=== PATIENT | female | born 1990 | race Caucasian/White ===

== ENCOUNTER 2019-04-25 17:24 | Emergency (ER) | payer OTHER ==
[2019-04-25 17:34] VITALS: BP 126/75; TEMP 98.2; BMI 24.2
--- NOTE | 2019-04-25 17:37 | PDOC ---
Rapid Medical Evaluation Chief Complaint: Pain Time Seen by Provider: 04/25/19 17:33 Medical Evaluation: Allergies Allergy/AdvReac Type Severity Reaction Status Date / Time No Known Drug Allergies Allergy Verified 04/25/19 17:30 04/25/19 17:33 This patient had brief medical evaluation in triage cc: abdominal pain x 2-3 days HPI: patient reports left lower abdominal pain x 2-3 days with no constipation, nausea or vomiting PE: appear unlabored breathing abdomen non-tender, +bowel sounds Orders: urine This patient will proceed to main ed for further evaluation Discharge Disposition - Diagnosis Abdominal pain - Referrals - Patient Instructions - Post Discharge Activity
--- NOTE | 2019-04-25 19:59 | PDOC ---
History of Present Illness - General Chief Complaint: Pain Stated Complaint: ABD PAIN Time Seen by Provider: 04/25/19 17:33 History Source: Patient - History of Present Illness Initial Comments: 04/25/19 19:54 29 year old female c/o LUQ pain and nausea x 3 days. reports slight chest pain and palpitations and dizziness. denies pleuritic pain. patient reports that she has been off thyroid meds for 3 months. PMHX; hypertension hyperthyroidism currently not on meds 04/25/19 19:56 04/25/19 20:01 04/25/19 20:03 Timing/Duration: reports: getting worse Abdominal Pain Onset Location: reports: RUQ, LUQ Pain Radiation: reports: RUQ Past History - Past Medical History Allergies/Adverse Reactions: Allergies Allergy/AdvReac Type Severity Reaction Status Date / Time No Known Drug Allergies Allergy Verified 04/25/19 17:30 Home Medications: Ambulatory Orders NK [No Known Home Medication] 04/25/19 Anemia: No Asthma: No Cancer: No Cardiac Disorders: No CVA: No COPD: No CHF: No Dementia: No Diabetes: No GI Disorders: No Disorders: No HTN: Yes Hypercholesterolemia: No Liver Disease: No Seizures: No Thyroid Disease: No - Immunization History Immunization Up to Date: No - Psycho Social/Smoking Cessation Hx Smoking History: Never smoked Information on smoking cessation initiated: No Hx Alcohol Use: No Drug/Substance Use Hx: No Substance Use Type: None Hx Substance Use Treatment: No Review of Systems - Review of Systems Able to Perform ROS?: Yes Is the patient limited Spanish proficient: No ABD/GI: Yes: Nausea, Abdominal cramping : No: Symptoms Reported, See HPI, Burning, Dysuria, Discharge, Frequency, Flank Pain, Hematuria, Incontinence, Pain, Urgency, Testicular Mass, Testicular Swelling, Lesions, Testicular Pain, Other Musculoskeletal: No: Symptoms Reported, See HPI, Back Pain, Gout, Joint Pain, Joint Swelling, Muscle Pain, Muscle Weakness, Neck Pain, Joint Stiffness, Other *Physical Exam - Vital Signs Last Vital Signs Temp Pulse Resp BP Pulse Ox 98.2 F 116 H 18 126/75 100 04/25/19 17:30 04/25/19 17:30 04/25/19 17:30 04/25/19 17:30 04/25/19 17:30 - Physical Exam General Appearance: Yes: Appropriately Dressed Neck: positive: Thyromegaly Respiratory/Chest: positive: Lungs Clear, Normal Breath Sounds Cardiovascular: positive: Tachycardia Gastrointestinal/Abdominal: positive: Normal Bowel Sounds, Tender (LUQ/ epigastric are) Extremity: positive: Normal Capillary Refill Integumentary: positive: Normal Color, Dry, Warm Neurologic: positive: Fully Oriented, Alert ED Treatment Course - LABORATORY CBC & Chemistry Diagram: 04/25/19 20:15 04/25/19 20:15 - ADDITIONAL ORDERS Additional order review: Laboratory Results 04/25/19 17:45 Urine HCG, Qual Negative ED Progress Note - Progress Note Progress Note: A: Hyperthyroidism P: CBC CMP cardiac TSH EKG chest xray Medical Decision Making - Medical Decision Making 04/25/19 22:[address] hall recommends outpatient PCP follow up tomorrow Discharge - Discharge Information Problems reviewed: Yes Clinical Impression/Diagnosis: Palpitations, Hyperthyroidism Chest pain Qualifiers: Chest pain type: unspecified Qualified Code(s): R07.9 - Chest pain, unspecified Condition: Fair Disposition: HOME - Follow up/Referral Referrals: Nate Harding MD [Primary Care Provider] - (walk in tomorrow) - Patient Discharge Instructions Patient Printed Discharge Instructions: Hyperthyroidism Additional Instructions: please go to Dr. moore office tomorrow. you need treatment for your hyperthyroid - Post Discharge Activity Work/Back to School Note: Back to Work
[2019-04-25] MEDS ORDERED: ONDANSETRON *ODT* 4 MG TABLET SL ONE (20:05)
[2019-04-25] MEDS ORDERED: ONDANSETRON *ODT* 4 MG TABLET ONE (20:19)
[2019-04-25 20:33] LABS: BASO % 1.5 % (0-2.0); EOS % 0.6 % (0-4.5); HEMATOCRIT 38.5 % (32.4-45.2); LYMPH % 63.2 % (8-40); MCH 27.1 pg (25.7-33.7); MCHC 33.8 g/dl (32.0-36.0); MEAN CELL VOLUME 80.3 fl (80-96); MEAN PLT VOLUME 7.5 fl (7.5-11.1); MONO % 9.8 % (3.8-10.2); NEUT % 24.9 % (42.8-82.8); PLATELET COUNT 270 K/MM3 (134-434); RBC 4.79 M/mm3 (3.60-5.2); RDW 14.3 % (11.6-15.6); WHITE BLOOD COUNT 4.5 K/mm3 (4.0-10.0)
[2019-04-25 20:35] LABS: URINE APPEARANCE CLEAR; URINE BILIRUBIN NEGATIVE (NEGATIVE); URINE COLOR YELLOW; URINE GLUCOSE (UA) NEGATIVE (NEGATIVE); URINE KETONE NEGATIVE (NEGATIVE); URINE LEUK ESTERASE NEGATIVE (NEGATIVE); URINE NITRITE NEGATIVE (NEGATIVE); URINE PROTEIN NEGATIVE (NEGATIVE); URINE UROBILINOGEN 0.2 mg/dL (0.2-1.0)
[2019-04-25 21:31] LABS: ALBUMIN 3.9 g/dl (3.4-5.0); ALK PHOS 141 U/L (45-117); ANION GAP 9 MMOL/L (8-16); BILIRUBIN,TOTAL 0.4 mg/dL (0.2-1); CALCIUM 8.9 mg/dL (8.5-10.1); CHLORIDE 106 mmol/L (98-107); CO2 25 mmol/L (21-32); CREATININE 0.4 mg/dL (0.55-1.3); GLUCOSE,RANDOM 92 mg/dL (74-106); POTASSIUM 3.3 mmol/L (3.5-5.1); SGOT/AST 13 U/L (15-37); SGPT/ALT 28 U/L (13-61); SODIUM 140 mmol/L (136-145); TOT PROT 7.2 g/dl (6.4-8.2)
[2019-04-25 21:48] LABS: PLATELET ESTIMATE ADEQUATE
[2019-04-25 22:39] VITALS: PULSE 109
--- NOTE | 2019-04-26 10:33 | EKG ---
Test Reason : Blood Pressure : / mmHG Vent. Rate : 105 BPM Atrial Rate : 105 BPM P-R Int : 132 ms QRS Dur : 088 ms QT Int : 398 ms P-R-T Axes : 030 080 066 degrees QTc Int : 526 ms SINUS TACHYCARDIA PROLONGED QT ABNORMAL ECG NO PREVIOUS ECGS AVAILABLE Confirmed by Axel Baugh MD ([id number]) on 04/26/2019 10:33:20 AM Referred By: Confirmed By:Axel Baugh MD
== END 2019-04-25 22:39 | disposition home or self-care (01) ==
LOC: JER 17:24
DX: E05.90 Thyrotoxicosis, unspecified without thyrotoxic crisis or storm (principal); R00.2 Palpitations; R07.9 Chest pain, unspecified; I10 Essential (primary) hypertension
CPT/HCPCS: 36415; 71046-TC-FY; 80053; 81003; 82550; 84439; 84443; 84481; 84484; 84703; 85025; 93005; 93010; 99284-25; Q0162

== ENCOUNTER 2019-04-28 16:53 | Emergency (ER) | payer OTHER ==
[2019-04-28 17:12] VITALS: BMI 22.8
--- NOTE | 2019-04-28 17:12 | PDOC ---
Rapid Medical Evaluation Chief Complaint: Pain, Acute Time Seen by Provider: 04/28/19 17:09 Medical Evaluation: Allergies Allergy/AdvReac Type Severity Reaction Status Date / Time No Known Drug Allergies Allergy Verified 04/25/19 17:30 04/28/19 17:09 I have performed a brief in-person evaluation of this patient. The patient presents with a chief complaint of: urinary pain and pain to LLQ radiating to L flank x 1 week, fever and diarrhea today, LMP began yesterday Pertinent physical exam findings: L CVA tenderness I have ordered the following: ua, ucx, upreg The patient will proceed to the ED for further evaluation. 04/28/19 17:12 Discharge Disposition - Diagnosis Dysuria - Discharge Dispostion Condition at time of disposition: Stable - Referrals - Patient Instructions - Post Discharge Activity
[2019-04-28] MEDS ORDERED: SODIUM CHLORIDE 1,000 ML IV STA (17:44)
[2019-04-28] MEDS ORDERED: ACETAMINOPHEN 1000 MG/100 ML VIAL (NON FORMULARY) IVPB ONE (17:44)
--- NOTE | 2019-04-28 17:45 | PDOC ---
History of Present Illness - General Chief Complaint: Pain, Acute Stated Complaint: LT ABD PAIN Time Seen by Provider: 04/28/19 17:09 History Source: Patient Exam Limitations: No Limitations Past History - Travel Traveled outside of the country in the last 30 days: No Close contact w/someone who was outside of country & ill: No - Past Medical History Allergies/Adverse Reactions: Allergies Allergy/AdvReac Type Severity Reaction Status Date / Time No Known Drug Allergies Allergy Verified 04/28/19 18:22 Home Medications: Ambulatory Orders Acetaminophen [Tylenol -] 650 mg PO Q6H #45 tablet 04/28/19 Famotidine [Pepcid -] 20 mg PO BID #14 tablet 04/28/19 Methimazole 10 mg PO DAILY 04/28/19 Anemia: No Asthma: No Cancer: No Cardiac Disorders: No CVA: No COPD: No CHF: No Dementia: No Diabetes: No GI Disorders: No Disorders: No HTN: Yes Hypercholesterolemia: No Liver Disease: No Seizures: No Thyroid Disease: No - Immunization History Immunization Up to Date: No - Psycho Social/Smoking Cessation Hx Smoking History: Never smoked Have you smoked in the past 12 months: No Information on smoking cessation initiated: No Hx Alcohol Use: No Drug/Substance Use Hx: No Substance Use Type: None Hx Substance Use Treatment: No Review of Systems - Review of Systems Able to Perform ROS?: Yes Comments:: 04/28/19 20:10 CONSTITUTIONAL: Absent: fever, chills, diaphoresis, generalized weakness, malaise, loss of appetite HEENT: Absent: rhinorrhea, nasal congestion, throat pain, throat swelling, difficulty swallowing, mouth swelling, ear pain, eye pain, visual Changes CARDIOVASCULAR: Absent: chest pain, loss of consciousness, palpitations, irregular heart rate, peripheral edema RESPIRATORY: Absent: cough, shortness of breath, dyspnea with exertion, orthopnea, wheezing, stridor, hemoptysis GASTROINTESTINAL: Present: Left-sided abdominal pain Absent: abdominal distension, nausea, vomiting, diarrhea, constipation, melena, hematochezia GENITOURINARY: Present: Left flank pain Absent: dysuria, frequency, urgency, hesitancy, hematuria,genital pain MUSCULOSKELETAL: Absent: myalgia, arthralgia, joint swelling SKIN: Absent: rash, itching, pallor HEMATOLOGIC/IMMUNOLOGIC: Absent: easy bleeding, easy bruising, lymphadenopathy, frequent infections ENDOCRINE: Absent: unexplained weight gain, unexplained weight loss, heat intolerance, cold intolerance NEUROLOGIC: Absent: headache, focal weakness or paresthesias, dizziness, unsteady gait, seizure, mental status changes, bladder or bowel incontinence PSYCHIATRIC: Absent: anxiety, depression, suicidal or homicidal ideation, hallucinations. Is the patient limited Pakistani proficient: No *Physical Exam - Vital Signs Last Vital Signs Temp Pulse Resp BP Pulse Ox 98.8 F 103 H 18 144/79 98 04/28/19 17:09 04/28/19 17:09 04/28/19 17:09 04/28/19 17:09 04/28/19 17:09 - Physical Exam 04/28/19 20:11 GENERAL: Well developed, well nourished. Awake and alert. No acute distress. HEENT: Normocephalic, atraumatic. PERRLA, EOMI. No conjunctival pallor. Sclera are non- icteric. Moist mucous membranes. Oropharynx is clear. NECK: Supple. Full ROM. No JVD. Carotid pulses 2+ and symmetric, without bruits. No thyromegaly. No lymphadenopathy. CARDIOVASCULAR: Regular rate and rhythm. No murmurs, rubs, or gallops. Distal pulses are 2+ and symmetric. PULMONARY: No evidence of respiratory distress. Lungs clear to auscultation bilaterally. No wheezing, rales or rhonchi. ABDOMINAL: TTP of the LUQ. Soft. Non-distended. No rebound or guarding. No organomegaly. Normoactive bowel sounds. MUSCULOSKELETAL Normal range of motion at all joints. No bony deformities or tenderness. (+) L CVA tenderness. EXTREMITIES: No cyanosis. No clubbing. No edema. No calf tenderness. SKIN: Warm and dry. Normal capillary refill. No rashes. No jaundice. NEUROLOGICAL: Alert, awake, appropriate. Cranial nerves 2-12 intact. No deficits to light touch and temperature in face, upper extremities and lower extremities. No motor deficits in the in face, upper extremities and lower extremities. Normoreflexic in the upper and lower extremities. Normal speech. Toes are down-going bilaterally. Gait is normal without ataxia. PSYCHIATRIC: Cooperative. Good eye contact. Appropriate mood and affect. ED Treatment Course - LABORATORY CBC & Chemistry Diagram: 04/28/19 18:00 04/28/19 18:00 - RADIOLOGY Radiology Studies Ordered: Category Date Time Status SPIRAL- RENAL-STONE CT [CT] Stat CT Scan 04/28/19 17:44 Ordered Medical Decision Making - Medical Decision Making 04/28/19 20:18 The patient is a 29-year-old female with past medical history of bacteria in her stomach 3 months ago, presents to the ER today for left flank pain and abdominal pain for 1 week. She states that the pain is sharp and nothing makes it better or worse. She does admit to some associated nausea and vomiting which started today. She also admits to one bout of diarrhea. She states the pain radiates to her lower abdomen. Denies fevers, chills, chest pain, shortness of breath, and urinary symptoms. She states she did not finish taking her ant ibiotics as previously prescribed by her GI doctor for her bacterial overgrowth. A/P: Abdominal pain On exam patient has tenderness palpation of the left upper quadrant with left flank pain. Fluids, Zofran and Tylenol given for symptoms Lab work and CT show no acute pathology at this time. Repeat abdominal exam now without pain. Likely a viral illness versus "bacterial overgrowth. Defer antibiotics at this time as unsure of the bacteria status. Do not want to do C. difficile. Instructed patient to follow-up with her outside sales inspector this week for further evaluation of her symptoms. I discussed the physical exam findings, ancillary test results and final diagnoses with the patient. I answered all of the patient's questions. The patient was satisfied with the care received and felt comfortable with the discharge plan and treatment plan. The Patient agrees to follow up with the primary care physician/specialist within 24-72 hours. Return precautions were given. Discharge - Discharge Information Problems reviewed: Yes Clinical Impression/Diagnosis: Abdominal pain Qualifiers: Abdominal location: left upper quadrant Qualified Code(s): R10.12 - Left upper quadrant pain Condition: Stable - Admission No - Additional Discharge Information Prescriptions: Famotidine [Pepcid -] 20 mg PO BID #14 tablet Acetaminophen [Tylenol -] 650 mg PO Q6H #45 tablet - Follow up/Referral Referrals: Brendon Harding [Primary Care Provider] - - Patient Discharge Instructions Patient Printed Discharge Instructions: DI for Abdominal Pain-Adult Additional Instructions: You were evaluated for your abdominal pain today. Your CAT scan and lab work did not reveal an emergency at this time. Please eat a bland diet including plain rice, applesauce, toast. You may take the Pepcid twice a day to help with the acid. You may take Tylenol 650 mg every 6 hours as needed for pain. Please follow-up with your outside sales inspector this week. Return to the ER for worsening pain, nausea, vomiting, diarrhea, or if you have any changes in your symptoms.. - Post Discharge Activity
[2019-04-28] MEDS ORDERED: ACETAMINOPHEN INJECTION 100 ML IVPB ONE (18:03)
[2019-04-28 18:11] LABS: BASO % 0.5 % (0-2.0); EOS % 1.7 % (0-4.5); HEMATOCRIT 38.3 % (32.4-45.2); HEMOGLOBIN 12.9 GM/dL (10.7-15.3); LYMPH % 70.2 % (8-40); MCH 27.3 pg (25.7-33.7); MCHC 33.7 g/dl (32.0-36.0); MEAN CELL VOLUME 80.9 fl (80-96); MEAN PLT VOLUME 7.3 fl (7.5-11.1); NEUT % 20.6 % (42.8-82.8); PLATELET COUNT 261 K/MM3 (134-434); RBC 4.74 M/mm3 (3.60-5.2); WHITE BLOOD COUNT 3.8 K/mm3 (4.0-10.0)
[2019-04-28 18:27] LABS: HCG,QUALITATIVE URINE Negative
[2019-04-28 18:29] LABS: EPI CELLS 1.2 /HPF (0-5/HPF); HYALINE CASTS 0 /lpf (0-8); PH,URINE 6.5 (5.0-8.0); URINE APPEARANCE CLEAR; URINE BACTERIA 10.8 /hpf (NEGATIVE); URINE BILIRUBIN NEGATIVE (NEGATIVE); URINE COLOR YELLOW; URINE GLUCOSE (UA) NEGATIVE (NEGATIVE); URINE KETONE NEGATIVE (NEGATIVE); URINE LEUK ESTERASE NEGATIVE (NEGATIVE); URINE NITRITE NEGATIVE (NEGATIVE); URINE PROTEIN NEGATIVE (NEGATIVE); URINE RBC 19 /hpf (0-4); URINE UROBILINOGEN 0.2 mg/dL (0.2-1.0); URINE WBC 1 /hpf (0-5)
[2019-04-28 18:37] LABS: ALBUMIN 3.8 g/dl (3.4-5.0); BILIRUBIN,TOTAL 0.3 mg/dL (0.2-1); BLOOD UREA NITROGEN 13.1 mg/dL (7-18); CALCIUM 8.9 mg/dL (8.5-10.1); CREATININE 0.4 mg/dL (0.55-1.3); POTASSIUM 3.5 mmol/L (3.5-5.1); TOT PROT 7.3 g/dl (6.4-8.2)
[2019-04-28 20:31] VITALS: BP 135/75; PULSE 96; TEMP 98.2
== END 2019-04-28 20:31 | disposition home or self-care (01) ==
LOC: JER 16:53
PROC: 3E033NZ Introduction of Analgesics, Hypnotics, Sedatives into Peripheral Vein, Percutaneous Approach (ICD-10-PCS; principal; 2019-04-28)
DX: R10.12 Left upper quadrant pain (principal); I10 Essential (primary) hypertension
CPT/HCPCS: 36415; 74176-TC; 80053; 81003; 84703; 85025; 87086; 96374; 99285-25; J0131; J7030

== ENCOUNTER 2020-09-11 07:53 | Emergency (ER) | payer OTHER ==
[2020-09-11 08:24] VITALS: BP 120/78; PULSE 79; TEMP 98.6; BMI 27.6
== END 2020-09-11 09:15 | disposition home or self-care (01) ==
LOC: JER 07:53
DX: J02.9 Acute pharyngitis, unspecified (principal); Z11.52 Encounter for screening for COVID-19
CPT/HCPCS: 87880; 99283-25; C9803; U0003; U0005

== ENCOUNTER 2021-06-30 10:42 | Emergency (ER) | payer OTHER ==
[2021-06-30 10:51] VITALS: BP 132/74; PULSE 103; TEMP 98.5; BMI 23.9
[2021-06-30 13:09] LABS: URINE APPEARANCE CLEAR; URINE BILIRUBIN NEGATIVE (NEGATIVE); URINE COLOR YELLOW; URINE GLUCOSE (UA) NEGATIVE (NEGATIVE); URINE KETONE NEGATIVE (NEGATIVE); URINE LEUK ESTERASE NEGATIVE (NEGATIVE); URINE NITRITE NEGATIVE (NEGATIVE); URINE PROTEIN NEGATIVE (NEGATIVE); URINE UROBILINOGEN 0.2 mg/dL (0.2-1.0)
[2021-06-30 13:20] LABS: HCG,QUALITATIVE URINE Negative
[2021-06-30] MEDS ORDERED: predniSONE 20 MG TABLET (UD) ONE (13:22)
[2021-06-30] MEDS ORDERED: predniSONE 20 MG TABLET (UD) PO ONE (14:11)
[2021-07-01] MEDS ORDERED: predniSONE 20 MG TABLET (UD) PO ONE (10:00)
== END 2021-06-30 14:45 | disposition home or self-care (01) ==
LOC: JER 10:42 → JERFT 10:42
PROC: 3E023GC Introduction of Other Therapeutic Substance into Muscle, Percutaneous Approach (ICD-10-PCS; principal; 2021-06-30)
DX: R21 Rash and other nonspecific skin eruption (principal); Z11.3 Encounter for screening for infections with a predominantly sexual mode of transmission
CPT/HCPCS: 36415; 81003; 84703; 87086; 87491; 87591; 99284-25

== ENCOUNTER 2021-10-14 10:55 | Emergency (ER) | payer OTHER ==
[2021-10-14 11:01] VITALS: BP 123/77; PULSE 90; RESP 17; TEMP 97.9; BMI 25.7
[2021-10-14] MEDS ORDERED: FLUCONAZOLE 150 MG TABLET PO ONE ×2 (11:46→12:09)
[2021-10-14 12:09] LABS: EPI CELLS 27 /uL (0-25.1); HCG,QUALITATIVE URINE Negative; HYALINE CASTS 1 /uL (0-3.1); PH,URINE 5.5 (5.0-8.0); URINE APPEARANCE CLEAR; URINE BACTERIA 344 /uL (0-1359); URINE BILIRUBIN NEGATIVE (NEGATIVE); URINE COLOR DK YELLOW; URINE GLUCOSE (UA) NEGATIVE (NEGATIVE); URINE KETONE TRACE (NEGATIVE); URINE LEUK ESTERASE 1+ (NEGATIVE); URINE NITRITE NEGATIVE (NEGATIVE); URINE PROTEIN NEGATIVE (NEGATIVE); URINE RBC 7 /uL (0-23.9); URINE WBC 4 /uL (0-25.8)
== END 2021-10-14 12:20 | disposition home or self-care (01) ==
LOC: JER 10:55
DX: N77.1 Vaginitis, vulvitis and vulvovaginitis in diseases classified elsewhere (principal)
CPT/HCPCS: 36415; 81003; 84703; 87086; 87491; 87591; 87661; 99283-25

== ENCOUNTER 2022-01-14 09:22 | Emergency (ER) | payer OTHER ==
[2022-01-14 09:31] VITALS: BP 106/71; PULSE 96; RESP 18; TEMP 98.3; BMI 24.3
[2022-01-14] MEDS ORDERED: IBUPROFEN 600 MG TABLET (FP) PO ONE ×2 (09:32→10:23)
== END 2022-01-14 12:24 | disposition home or self-care (01) ==
LOC: JERFT 09:22
DX: S93.401A Sprain of unspecified ligament of right ankle, initial encounter (principal); X50.0XXA Overexertion from strenuous movement or load, initial encounter; W01.0XXA Fall on same level from slipping, tripping and stumbling without subsequent striking against object, initial encounter
CPT/HCPCS: 73610-TC-RT-FY; 73630-TC-RT-FY; 99283-25

== ENCOUNTER 2023-02-11 08:00 | Emergency (ER) | payer OTHER ==
[2023-02-11 08:07] VITALS: BP 132/73; PULSE 88; RESP 18; TEMP 98.2; BMI 25.7
[2023-02-11 10:40] LABS: PH,URINE 7.5 (5.0-8.0); URINE APPEARANCE CLEAR; URINE BILIRUBIN NEGATIVE (NEGATIVE); URINE COLOR YELLOW; URINE GLUCOSE (UA) NEGATIVE (NEGATIVE); URINE KETONE NEGATIVE (NEGATIVE); URINE LEUK ESTERASE NEGATIVE (NEGATIVE); URINE NITRITE NEGATIVE (NEGATIVE); URINE PROTEIN NEGATIVE (NEGATIVE); URINE UROBILINOGEN 0.2 mg/dL (0.2-1.0)
[2023-02-11] MEDS: morphine CARPU-JECT 2 MG/1 ML DISP.SYRIN IVPB ONE (10:45)
[2023-02-11] MEDS: SODIUM CHLORIDE 0.9% 500 ML INFUS.BAG IV ONE (10:45)
[2023-02-11 10:49] LABS: HEMATOCRIT 43.9 % (32.4-45.2); HEMOGLOBIN 15.1 GM/dL (10.7-15.3); MCH 28.6 pg (25.7-33.7); MCHC 34.3 g/dl (32.0-36.0); MEAN CELL VOLUME 83.3 fl (80-96); PLATELET COUNT 259 10^3/uL (134-434); RBC 5.27 M/mm3 (3.60-5.2); WHITE BLOOD COUNT 2.5 K/mm3 (4.0-10.0)
[2023-02-11 11:08] LABS: POTASSIUM 4.2 mmol/L (3.5-5.1)
[2023-02-11 11:11] LABS: CALCIUM 9.2 mg/dL (8.5-10.1)
[2023-02-11 11:12] LABS: ALBUMIN 4.2 g/dl (3.4-5.0); BLOOD UREA NITROGEN 9.9 mg/dL (7-18)
[2023-02-11 11:15] LABS: CREATININE 0.5 mg/dL (0.55-1.3)
[2023-02-11 11:16] LABS: BILIRUBIN,TOTAL 0.4 mg/dL (0.2-1)
[2023-02-11 11:17] LABS: TOT PROT 7.9 g/dl (6.4-8.2)
[2023-02-11 11:30] LABS: ANISOCYTOSIS 0; MACROCYTOSIS 0
== END 2023-02-11 13:56 | disposition home or self-care (01) ==
LOC: JER 08:00
PROC: 3E033NZ Introduction of Analgesics, Hypnotics, Sedatives into Peripheral Vein, Percutaneous Approach (ICD-10-PCS; principal; 2023-02-11)
DX: O26.891 Other specified pregnancy related conditions, first trimester (principal); R10.2 Pelvic and perineal pain; Z3A.01 Less than 8 weeks gestation of pregnancy
CPT/HCPCS: 36415; 76817-TC; 80053; 81003; 84702; 84703; 85025; 87086; 99284-25

== ENCOUNTER 2023-02-13 18:26 | Emergency (ER) | payer OTHER ==
[2023-02-13 18:29] VITALS: BP 123/78; PULSE 95; RESP 18; TEMP 98; BMI 26.2
== END 2023-02-13 20:21 | disposition home or self-care (01) ==
LOC: JERFT 18:26
DX: Z34.91 Encounter for supervision of normal pregnancy, unspecified, first trimester (principal); Z3A.01 Less than 8 weeks gestation of pregnancy
CPT/HCPCS: 36415; 84702; 86850; 86900; 86901; 99283-25

== ENCOUNTER 2023-10-15 14:25 | Inpatient (IN) | payer BC ==
[2023-10-15] MEDS: ELECTROLYTE-148 SOLN 500 ML IV SCH ×2 (15:00→16:00)
[2023-10-15 15:52] LABS: BASO % 0.2 % (0-2.0); HEMATOCRIT 31.1 % (32.4-45.2); HEMOGLOBIN 10.7 GM/dL (10.7-15.3); MCH 27.2 pg (25.7-33.7); MCHC 34.5 g/dl (32.0-36.0); MEAN CELL VOLUME 78.7 fl (80-96); MEAN PLT VOLUME 7.2 fl (7.5-11.1); MONO % 5.3 % (3.8-10.2); NEUT % 61.5 % (42.8-82.8); PLATELET COUNT 294 10^3/uL (134-434); RBC 3.95 M/mm3 (3.60-5.2); RDW 14.6 % (11.6-15.6); WHITE BLOOD COUNT 4.4 K/mm3 (4.0-10.0)
[2023-10-15 15:58] LABS: INR 0.88 (0.83-1.09)
[2023-10-15 16:16] LABS: ANION GAP 10 mmol/L (4-13); BLOOD UREA NITROGEN 17.4 mg/dL (7-18); CALCIUM 8.1 mg/dL (8.5-10.1); CHLORIDE 107 mmol/L (98-107); CO2 19 mmol/L (21-32); GLUCOSE,RANDOM 116 mg/dL (74-106); POTASSIUM 3.7 mmol/L (3.5-5.1); SODIUM 136 mmol/L (136-145)
[2023-10-15 16:19] LABS: CREATININE 0.7 mg/dL (0.55-1.3)
[2023-10-15 18:18] VITALS: BMI 31.4
[2023-10-15] MEDS: ELECTROLYTE-148 SOLN 1,000 ML IV SCH (21:00)
[2023-10-16] MEDS ORDERED: PROMETHAZINE HCL 25 MG/1 ML VIAL ONE (05:08)
[2023-10-16] MEDS ORDERED: BUTORPHANOL TARTRATE 2 MG/ML VIAL ONE (05:08)
[2023-10-16] MEDS: PROMETHAZINE HCL 25 MG/1 ML VIAL IVPB ONE (05:15)
[2023-10-16] MEDS: BUTORPHANOL TARTRATE 2 MG/ML VIAL IVPB ONE (05:15)
[2023-10-16] MEDS ORDERED: OXYTOCIN 30 UNITS in 0.9% NS 30 UNIT/500 ML INFUS.BAG IVPB ONE (05:52)
[2023-10-16] MEDS: OXYTOCIN 30 UNITS in 0.9% NS 30 UNIT/500 ML INFUS.BAG IVPB SCH (06:00)
[2023-10-16] MEDS ORDERED: FENTANYL/BUPIVACAINE/NS/PF - PCEA - 50 ML DISP.SYRIN EP ONE (07:08)
[2023-10-16] MEDS: FENTANYL/BUPIVACAINE/NS/PF - PCEA - 50 ML DISP.SYRIN EP SCH (07:30)
[2023-10-16] MEDS ORDERED: OXYTOCIN 20 UNITS in 0.9% NS 20 UNIT/1,000 ML INFUS.BAG IV ONE (07:59)
[2023-10-16] MEDS: OXYTOCIN 20 UNITS in 0.9% NS 20 UNIT/1,000 ML INFUS.BAG IV SCH (08:23)
[2023-10-16] MEDS ORDERED: BENZOCAINE 20% 57 GM BOTTLE TP PRN (08:41)
[2023-10-16] MEDS ORDERED: WITCH HAZEL 50% (TUCKS) 40 PAD/JAR PAD TP PRN (08:41)
[2023-10-16] MEDS ORDERED: BENZOCAINE 28 GM HEMORRHOIDAL OINTMENT TP PRN (08:41)
[2023-10-16] MEDS ORDERED: METHYLERGONOVINE MALEATE 0.2 MG/1 ML AMP IM PRN (08:41)
[2023-10-16] MEDS ORDERED: oxyCODONE HCL 5 MG TABLET PO PRN (08:41)
[2023-10-16] MEDS ORDERED: ACETAMINOPHEN 325 MG TABLET (FP) PO PRN (08:41)
[2023-10-16] MEDS ORDERED: NALOXONE HCL 0.4 MG/ML VIAL IVPUSH PRN (10:26)
[2023-10-16] MEDS ORDERED: IBUPROFEN 600 MG TABLET (FP) PO ONE (13:43)
[2023-10-16] MEDS: IBUPROFEN 600 MG TABLET (FP) PO PRN (13:45)
[2023-10-16 14:20] LABS: POC NITRAZINE POS
[2023-10-17 08:42] LABS: BASO % 0.2 % (0-2.0); HEMATOCRIT 30.3 % (32.4-45.2); HEMOGLOBIN 9.8 GM/dL (10.7-15.3); LYMPH % 27.6 % (8-40); MCH 26.2 pg (25.7-33.7); MCHC 32.4 g/dl (32.0-36.0); MEAN CELL VOLUME 81.1 fl (80-96); MEAN PLT VOLUME 6.8 fl (7.5-11.1); MONO % 5.5 % (3.8-10.2); NEUT % 66.7 % (42.8-82.8); PLATELET COUNT 237 10^3/uL (134-434); RBC 3.74 M/mm3 (3.60-5.2); RDW 14.8 % (11.6-15.6); WHITE BLOOD COUNT 6.7 K/mm3 (4.0-10.0)
[2023-10-17 21:45] VITALS: RESP 18
[2023-10-17] MEDS ORDERED: SENNOSIDES/DOCUSATE COMBO (SENNA PLUS) TABLET (UD) PO PRN (22:00)
[2023-10-18] MEDS: BISACODYL 10 MG SUPP.RECT RC PRN (10:30)
[2023-10-18 10:41] VITALS: BP 118/81; PULSE 110; TEMP 98.6
== END 2023-10-18 14:15 | disposition home or self-care (01) | DRG 807 ==
LOC: JLDR 14:25 → J3W 10-16 14:40
PROVIDERS: ADMIT Specialist; ATTEND Specialist
PROC: 0W8NXZZ Division of Female Perineum, External Approach (ICD-10-PCS; principal; 2023-10-16)
PROC: 10E0XZZ Delivery of Products of Conception, External Approach (ICD-10-PCS; 2023-10-16)
DX: O42.92 Full-term premature rupture of membranes, unspecified as to length of time between rupture and onset of labor (principal); Z37.0 Single live birth; Z3A.38 38 weeks gestation of pregnancy
CPT/HCPCS: 36415; 59409; 80048; 83986-QW; 85025; 85610; 85730; 86780; 86803; 86850; 86900; 86901